=== PATIENT | female | born 1955 | race Caucasian/White ===

== ENCOUNTER 2022-09-10 07:37 | Day surgery (SDC) | payer BC ==
[~2022-09-10] VITALS: Ht 152.4 cm; Wt 54.4 kg
[2022-09-10] VITALS (8 sets, daily range): BP systolic 66–136; BP diastolic 50–76
[~2022-09-10 07:37] MED LIST: ASCO500C17 PO; IBUP-1984 PO; VITAMIN D PO; famotidine 20mg tablet PO ONE; ringers solution, lacted 1,000 ML IV SCH
[2022-09-10] MEDS ORDERED: ceFAZolin inj. 2,000 MG in dextrose 5%-water 100 ML IV ONE (08:25)
[2022-09-10] MEDS ORDERED: ringers solution, lacted 1,000 ML IV SCH ×2 (08:25→12:15)
[2022-09-10 08:42] LABS: BASOPHILS # (AUTO) 0.1 X10'3 (0-0.2); BASOPHILS % (AUTO) 1.1 % (0-1); EOSINOPHILS # (AUTO) 0.1 X10'3 (0-0.9); EOSINOPHILS % (AUTO) 1.9 % (0-6); LYMPHOCYTES # (AUTO) 1.3 X10'3 (1.1-4.8); LYMPHOCYTES % (AUTO) 20.9 % (21-51); MEAN CORPUSCULAR HEMOGLOBIN 28.6 PG (27.0-31.0); MEAN CORPUSCULAR HGB CONC 33.9 g/dL (33.0-36.5); MEAN CORPUSCULAR VOLUME 84.4 FL (78-98); MEAN PLATELET VOLUME 5.8 FL (7.4-10.4); MONOCYTES # (AUTO) 0.5 X10'3 (0-0.9); MONOCYTES % (AUTO) 8.2 % (2-12); NEUTROPHILS # (AUTO) 4.3 X10'3 (1.8-7.7); NEUTROPHILS % (AUTO) 67.9 % (42-75); PRE OP HEMATOCRIT 40.6 % (35.0-45.0); PRE OP HEMOGLOBIN 13.8 g/dL (12.0-16.0); PRE OP PLATELET COUNT 484 X10'3 (140-440); RED BLOOD COUNT 4.82 X10'6 (4.20-5.60); RED CELL DISTRIBUTION WIDTH 14.3 % (11.5-14.5)
[2022-09-10 08:57] LABS: ALANINE AMINOTRANSFERASE 13 U/L (12-78); ALBUMIN 3.7 G/DL (3.4-5.0); ALBUMIN/GLOBULIN RATIO 1.2 (1.1-1.5); ALKALINE PHOSPHATASE 63 IU/L (46-116); ANION GAP 4 (8-16); ASPARTATE AMINO TRANSFERASE 15 U/L (10-37); BILIRUBIN,TOTAL 0.3 MG/DL (0.1-1.0); BLOOD UREA NITROGEN 12 MG/DL (7-18); BUN/CREATININE RATIO 17.6 (6.6-38.0); CALCIUM 9.5 MG/DL (8.5-10.1); CHLORIDE 109 MMOL/L (99-107); CREATININE 0.68 MG/DL (0.40-0.90); GLUCOSE 96 MG/DL (70-104); POTASSIUM 3.9 MMOL/L (3.5-5.1); SODIUM 142 MMOL/L (135-145); TOTAL PROTEIN 6.8 G/DL (6.4-8.2); eGFR 86 ML/MIN
[2022-09-10] MEDS ORDERED: fentaNYL/PF 50MCG/1 ML 2ML syringe ONE (10:49)
[2022-09-10] MEDS ORDERED: midazolam 1 mg/ML 2ml injection ONE (10:50)
[2022-09-10] MEDS ORDERED: propofol inj 20 ML IV ONE (10:50)
[2022-09-10] MEDS ORDERED: ROPIVAcaine 0.5% (5mg/ml) 30ml vial ONE (10:52)
[2022-09-10] MEDS ORDERED: sevoflurane 250ml liquid IH ONE (11:01)
[2022-09-10] MEDS ORDERED: ondansetron/PF 4mg/2ml inj IV PRN (12:15)
[2022-09-10] MEDS ORDERED: proCHLORperazine 10 MG/2 ml inj IV PRN (12:15)
[2022-09-10] MEDS ORDERED: morphine 2 MG/ML inj. syringe IV PRN (12:15)
[2022-09-10] MEDS ORDERED: morphine 4 MG/ML inj SYRINge IV PRN (12:15)
[2022-09-10] MEDS ORDERED: bacitracin 15gm ointment TP ONE ×2 (12:39→13:47)
[2022-09-10] MEDS ORDERED: ondansetron/PF 4mg/2ml inj ONE (13:33)
[2022-09-10] MEDS ORDERED: dexamethasone sod phosphate 4mg/ml inj. ONE (13:33)
--- NOTE | 2022-09-10 14:01 | NUR ---
Received from OR via [facility] IN STABLE CONDITION , accompanied by Anesthesiologist and RESEARCH HYDROLOGIST report given by Anesthesimelvi AND RESEARCH HYDROLOGIST. Addendum: 09/10/22 at 1415 by Safia Goncalves RN Amended: Links added.
--- NOTE | 2022-09-10 15:01 | NUR ---
PATIENT DISCHARGED FROM PACU IN STABLE CONDITION AFTER WRITTEN AND VERBAL DISCHARGE INSTRUCTIONS GIVEN. PATIENT AND BOYFRIEND GAVE VERBAL UNDERSTANDING OF INSTRUCTIONS GIVEN. PATIENT LEFT FACILITY VIA WHEELCHAIR WITH RN. Addendum: 09/10/22 at 1615 by Safia Goncalves RN Amended: Links added.
== END 2022-09-10 15:01 | disposition home or self-care (01) ==
LOC: PAS 07:37
PROVIDERS: ATTEND Podiatrist Foot & Ankle Surgery
DX: S82.841A Displaced bimalleolar fracture of right lower leg, initial encounter for closed fracture (principal); S93.431A Sprain of tibiofibular ligament of right ankle, initial encounter; Z88.8 Allergy status to other drugs, medicaments and biological substances; Z79.899 Other long term (current) drug therapy; Z98.890 Other specified postprocedural states; Z72.89 Other problems related to lifestyle; G89.18 Other acute postprocedural pain; X50.1XXA Overexertion from prolonged static or awkward postures, initial encounter; Y93.89 Activity, other specified; Y92.89 Other specified places as the place of occurrence of the external cause; Y99.8 Other external cause status
CPT/HCPCS: 27814; 27829; 36415; 64445; 64447; 73600; 76000; 80053; 82948; 85025; 93005; A6223; C1713; C1776; J0690; J1100; J2250; J2405; J2704; J2795; J3010; J7030; J7060; J7120; Z7506; Z7508; Z7512; A4215; A4618; A6253; A6449; A7000